=== PATIENT | male | born 1945 | race Caucasian/White ===

== ENCOUNTER 2017-05-11 07:44 | Day surgery (SDC) | payer OTHER, MEDICARE ==
[~2017-05-11 07:44] MED LIST: ATROPINE 1 MG/10 ML SYRINGE IV; BUPIVACAINE 0.75% (MPF) 10 ML INJ; CARBACHOL 0.01% 1.5 ML OPH INJ; CYCLOPENTOLATE 2% 2 ML OPH OPER; DIPHENHYDRAMINE 50 MG INJ IV; EPHEDrine SULFATE 50 MG/5 ML SYG IV; EPINEPHrine 1 MG INJ; FENTAnyl 50 MCG/ML VIAL IV; GLYCOPYRROLATE 0.4 MG INJ; HYDROmorphONE (0.2 MG/ML) 10ML SYG IV; LABETALOL HCL 20MG INJ IV; LIDOCAINE 1% (MPF) 10 ML INJ; LIDOCAINE 2% (SDV) 5 ML INJ; MEPERIDINE 25 MG INJ IV; MIDAZOLAM 1 MG/ML 2 ML INJ IV; MOXIFLOXACIN 0.5% 3 ML OPH OPER; NEOSTIGMINE 3 MG/3 ML SYRINGE; NEPAFENAC 0.1% 3 ML OPH OPER; ONDANSETRON 4 MG INJ IV; OXYCODONE/ACETAMINOPHEN (5/325) TAB PO; PHENYLephrine 10% 5 ML OPH OPER; ROCURONIUM 50 MG INJ; SODIUM BICARBONATE (IV ADD) 50 ML; TIMOLOL 0.5% 5 ML OPH; hydrALAzine 20 MG INJ IV; morphine (1 MG/ML) 10ML SYRINGE IV
[2017-05-11] MEDS: MOXIFLOXACIN 0.5% 3 ML OPH OPER (08:06)
[2017-05-11] MEDS: NEPAFENAC 0.1% 3 ML OPH OPER (08:07)
[2017-05-11] MEDS: CYCLOPENTOLATE 2% 2 ML OPH OPER (08:07)
[2017-05-11] MEDS: PHENYLephrine 10% 5 ML OPH OPER (08:08)
[2017-05-11] MEDS: TETRACAINE 0.5% 4 ML OPH LEFT EYE (08:35)
[2017-05-11] MEDS: PHENYLephrine 10% 5 ML OPH LEFT EYE (08:35)
[2017-05-11 08:45] LABS: POTASSIUM 4.3 mmol/L (3.5-5.1)
[2017-05-11] MEDS ORDERED: PROPOFOL 100 ML (08:48)
[2017-05-11] MEDS ORDERED: LIDOCAINE 100 MG SYRINGE (08:48)
[2017-05-11] MEDS: TIMOLOL 0.5% 5 ML OPH LEFT EYE (09:40)
== END 2017-05-11 11:01 | disposition home or self-care (01) ==
LOC: SDS 07:44
DX: H25.12 Age-related nuclear cataract, left eye (principal); I12.0 Hypertensive chronic kidney disease with stage 5 chronic kidney disease or end stage renal disease; N18.6 End stage renal disease; Z99.2 Dependence on renal dialysis
CPT/HCPCS: 66984; 84132

== ENCOUNTER 2018-12-27 06:58 | Day surgery (SDC) | payer MEDICARE, OTHER ==
[2018-12-27] MEDS: CYCLOPENTOLATE 2% 2 ML OPH OPER (07:55)
[2018-12-27] MEDS: PHENYLephrine 10% 5 ML OPH OPER (07:55)
[2018-12-27] MEDS: MOXIFLOXACIN 0.5% 3 ML OPH OPER (07:55)
[2018-12-27] MEDS: NEPAFENAC 0.1% 3 ML OPH OPER (07:55)
[2018-12-27 08:53] LABS: POTASSIUM 6.2 mmol/L (3.5-5.1)
[2018-12-27] MEDS ORDERED: BUPIVACAINE 0.5% (SDV) 30 ML INJ (10:24)
[2018-12-27] MEDS ORDERED: EPINEPHrine 1 MG INJ (10:24)
[2018-12-27] MEDS ORDERED: NA BICARB 50 MEQ/50 ML VIAL (10:25)
[2018-12-27] MEDS ORDERED: LIDOCAINE 1% (MPF) 5 ML VIAL (10:25)
[2018-12-27] MEDS ORDERED: NA HYALURONATE/CHONDROITIN 0.5 ML SYG (10:25)
[2018-12-27] MEDS ORDERED: PROPOFOL 20 ML (10:50)
[2018-12-27] MEDS ORDERED: MIDAZOLAM 1 MG/ML 2 ML INJ (10:50)
[2018-12-27] MEDS: LIDOCAINE 2% (SDV) 5 ML INJ (10:55)
[2018-12-27] MEDS: BALANCED SALT SOLN 500 ML OPH IRRIG IRR (10:55)
[2018-12-27] MEDS: NA BICARBONATE 8.4% 50 ML SYG IV (10:55)
[2018-12-27] MEDS: BUPIVACAINE 0.75% (MPF) 10 ML INJ INJ (10:55)
[2018-12-27] MEDS: EPINEPHrine 0.1 MG/ML SYG ZFS (10:55)
[2018-12-27] MEDS ORDERED: TIMOLOL MALEATE/PF 0.5% OCCUDOSE (0.3 ML) (11:07)
[2018-12-27] MEDS ORDERED: FENTAnyl 50 MCG/ML VIAL (11:08)
[2018-12-27] MEDS ORDERED: CARBACHOL 0.01% 1.5 ML OPH INJ (11:27)
[2018-12-27] MEDS: CARBACHOL 0.01% 1.5 ML OPH INJ RIGHT EYE (11:29)
[2018-12-27] MEDS ORDERED: hydrALAzine 20 MG INJ IV (11:30)
[2018-12-27] MEDS ORDERED: MIDAZOLAM 1 MG/ML 2 ML INJ IV (11:30)
[2018-12-27] MEDS ORDERED: EPHEDrine 25 MG/5 ML SYG IV (11:30)
[2018-12-27] MEDS ORDERED: METOCLOPRAMIDE 10 MG INJ IV (11:30)
[2018-12-27] MEDS ORDERED: FENTAnyl 50 MCG/ML VIAL IV ×3 (11:30)
[2018-12-27] MEDS ORDERED: LABETALOL HCL 20MG INJ IV (11:30)
[2018-12-27] MEDS ORDERED: ONDANSETRON 4 MG INJ IV (11:30)
[2018-12-27] MEDS ORDERED: OXYCODONE/ACETAMINOPHEN (5/325) TAB PO ×2 (11:30)
[2018-12-27] MEDS ORDERED: DIPHENHYDRAMINE 50 MG INJ IV (11:30)
[2018-12-27] MEDS ORDERED: MEPERIDINE 25 MG INJ IV (11:30)
== END 2018-12-27 13:05 | disposition home or self-care (01) ==
LOC: SDS 06:58
DX: H25.11 Age-related nuclear cataract, right eye (principal); I12.0 Hypertensive chronic kidney disease with stage 5 chronic kidney disease or end stage renal disease; N18.6 End stage renal disease; Z99.2 Dependence on renal dialysis; G40.909 Epilepsy, unspecified, not intractable, without status epilepticus
CPT/HCPCS: 66984; 71045; 84132